=== PATIENT | female | born 1970 | race Caucasian/White ===

== ENCOUNTER 2019-10-29 00:17 | Inpatient (IN) | payer OTHER ==
--- NOTE | 2019-10-29 03:15 | PDOC ---
Attending Attestation - Resident Resident Name: HillsAnurag - ED Attending Attestation I have performed the following: I have examined & evaluated the patient, The case was reviewed & discussed with the resident, I agree w/resident's findings & plan - HPI HPI: 10/29/19 05:22 see resident hpi - Physicial Exam PE: 10/29/19 05:22 agree with resident exam - Medical Decision Making 10/29/19 05:22 49-year-old female with bright red blood per rectum x24 hours Patient seen at [facility] earlier in the day and was discharged home for outpatient follow-up, she is here now because she states the bleeding is worse and she is concerned Bright red blood per rectum is present on exam Will CT and admit for further evaluation
--- NOTE | 2019-10-29 03:38 | PDOC ---
History of Present Illness - General Chief Complaint: Pain Stated Complaint: ABD PAIN, N/V,BLEEDING Time Seen by Provider: 10/29/19 03:11 - History of Present Illness Initial Comments: 49F PMH ADHD presenting with 1 day of on/off severe lower abdominal pain w/ BRBPR. Endorses occasional nausea and vomiting. Was seen at [facility] ED, given dx of colitis and dc'd w/ zofran, cipro, flagyl. Lab work then showed WBC 14. Denies f /c, cp/sob. s/p b/l tubal ligation, lmp 10/19/19. Has persistent bleeding and pain. Family at bedside provided images of blood in toilet and clots. Denies recent travel or new foods. CAESAR Matt PCP Past History - Past Medical History Allergies/Adverse Reactions: Allergies Allergy/AdvReac Type Severity Reaction Status Date / Time No Known Allergies Allergy Verified 10/29/19 00:59 Home Medications: Ambulatory Orders Lamotrigine [Lamictal] 200 mg PO DAILY 01/17/13 Dextroamphetamine/Amphetamine [Adderall 10 mg Tablet] 20 mg PO BID 10/29/19 Cefdinir 300 mg PO BID 3 Days #6 capsule 11/02/19 Cefuroxime Axetil [Cefuroxime] 250 mg PO BID #6 tablet 11/02/19 Metronidazole [Flagyl] 500 mg PO Q8H 3 Days #9 capsule 11/02/19 metroNIDAZOLE [Flagyl -] 500 mg PO Q8H #9 tablet 11/02/19 - Psycho Social/Smoking Cessation Hx Smoking History: Never smoked Hx Alcohol Use: No Drug/Substance Use Hx: No Review of Systems - Review of Systems Comments:: CONSTITUTIONAL: Endorses occasional rigors HEENT: Denies dizziness, changes in vision / hearing RESP: Denies SOB CARD: Denies chest pain, palpitations GI: Endorses abdominal pain, BRBPR : Denies dysuria SKIN: Denies rashes NEURO: Denies numbness, tingling, weakness MSK: Denies back pain *Physical Exam - Vital Signs Last Vital Signs Temp Pulse Resp BP Pulse Ox 97.9 F 92 H 17 103/68 100 10/29/19 00:18 10/29/19 00:18 10/29/19 00:18 10/29/19 00:18 10/29/19 00:18 - Physical Exam GEN: Well appearing, NAD, comfortable. AAOx3. HEENT: NC/AT, EOMI, PERRL, anicteric. No facial asymmetry. dry mucous membranes , there is a dark substance on tongue. Normal voice. Supple neck w/ FROM. CV: S1/S2, RRR, no m/r/g LUNG: CTAB, no wheezes, crackles, rales, rhonchi. GI: +TTP LLQ. Soft, ndnt, +BS, no guarding, no rebound. No masses. Neg CVAT b/ l. RECTAL: Exam chaperoned by Dr. Castillo. No hemorrhoids, masses, lesions on inspection. no active bleeding or oozing from anus. Normal sphincter tone. No masses or nodules of the rectal vault palpated. No fecal impaction. There is blood on glove. MSK: No obvious deformities of all extremities. SKIN: Warm, dry, no rashes appreciated. PSYCH: Normal mood and affect. NEURO: Moving all extremities well. ambulates w/ normal gait ED Treatment Course - LABORATORY CBC & Chemistry Diagram: 11/02/19 07:05 11/02/19 07:05 Medical Decision Making - Medical Decision Making 10/29/19 03:20 49F PMH ADHD presenting with 1 day of on/off severe lower abdominal pain w/ BRBPR. +TTP LLQ. +blood on finger via rectal. DDx - colitis, LGIB - CBC, CMP, TSH, Lipase, Mg, Phos - UA - FOBT - Fluids - Protonix - CT A/P - admit 10/29/19 06:[address] A/P w/ IV contrast. Otherwise healthy, no labs indicated for IV contrast. 10/29/19 06:52 CT A/P IOC: Moderately to markedly thickened distal transverse colon through mid sigmoid colon, consistent with colitis. No bowel obstruction. No free air. Normal appendix. Small ascites. Unremarkable liver, spleen, stomach, pancreas, kidneys and gallbladder. 2.2 cm fibroid in uterine fundus. 1.0 cm corpus luteum right ovary. Bilateral breast implants. THIS DOCUMENT HAS BEEN ELECTRONICALLY SIGNED Deandra Pelletier M.D. 10/29/19 07:00 will sign out to AM team Discharge - Discharge Information Problems reviewed: Yes Clinical Impression/Diagnosis: Rectal bleeding, Colitis Condition: Improved - Follow up/Referral - Patient Discharge Instructions - Post Discharge Activity
[2019-10-29] MEDS ORDERED: PANTOPRAZOLE SODIUM 40 MG VIAL IVPUSH ONE (03:39)
[2019-10-29] MEDS ORDERED: SODIUM CHLORIDE 0.9% 500 ML INFUS.BAG IV ONE ×2 (03:39→05:13)
[2019-10-29] MEDS ORDERED: PANTOPRAZOLE SODIUM 40 MG/100 ML BAG IVPB ONE (03:56)
[2019-10-29 04:18] LABS: BASO % 0.2 % (0-2.0); EOS % 0.4 % (0-4.5); HEMATOCRIT 34.5 % (32.4-45.2); HEMOGLOBIN 11.5 GM/dL (10.7-15.3); LYMPH % 8.5 % (8-40); MCH 30.6 pg (25.7-33.7); MCHC 33.4 g/dl (32.0-36.0); MEAN CELL VOLUME 91.7 fl (80-96); MEAN PLT VOLUME 7.4 fl (7.5-11.1); MONO % 6.9 % (3.8-10.2); PLATELET COUNT 357 K/MM3 (134-434); RBC 3.77 M/mm3 (3.60-5.2); WHITE BLOOD COUNT 16.2 K/mm3 (4.0-10.0)
[2019-10-29 04:36] LABS: INR 1.06 (0.83-1.09); PROTHROMBIN TIME (PATIENT) 12.5 SEC (9.7-13.0)
[2019-10-29 04:39] LABS: ACTIVATED PTT 32.9 SECONDS (25.2-36.5)
[2019-10-29 06:07] LABS: BILIRUBIN,TOTAL 0.6 mg/dL (0.2-1); BLOOD UREA NITROGEN 10.4 mg/dL (7-18); CREATININE 0.5 mg/dL (0.55-1.3); PHOSPHOROUS 3.4 mg/dL (2.5-4.9); TOT PROT 5.7 g/dl (6.4-8.2)
[2019-10-29] MEDS ORDERED: SODIUM CHLORIDE 1,000 ML IV STA (06:59)
[2019-10-29] MEDS ORDERED: CIPROFLOXACIN 400 MG/D5W 400 MG/200 ML IVPB IVPB ONE (07:00)
[2019-10-29] MEDS ORDERED: ACETAMINOPHEN INJECTION 100 ML IVPB ONE (07:10)
[2019-10-29] MEDS ORDERED: CEFTRIAXONE 1 GM in DEXTROSE 5%-WATER - 100 ML IVPB ONE (07:14)
[2019-10-29] MEDS: ACETAMINOPHEN 1000 MG/100 ML VIAL (NON FORMULARY) IVPB ONE (07:17)
--- NOTE | 2019-10-29 07:48 | PN ---
Teaching Attending Note Name of Resident: Anurag Rutherford ATTENDING PHYSICIAN STATEMENT I saw and evaluated the patient. I reviewed the resident's note and discussed the case with the resident. I agree with the resident's findings and plan as documented. Seen and examined; please see resident note for further historical information. I personally verified all ward historical information and exam findings. Personally interpreted all imaging and diagnostics and reviewed appropriate consults. I reviewed all labs and vital signs as per resident note and EMR as documented. I agree with the above assessment and plan unless supplemented by myself in the following. Patient has been having 1 day of bloody diarrhea for what she describes as occurring over 20 episodes. Nothing makes it better or worse, has gotten prescription for outpatient antibiotics but has not taken any. She has no known antibiotic allergies, denies a family history of inflammatory bowel disease. Does not take home medications. She is hemodynamically stable and afebrile. Agree with past medical, past surgical, family, and social history as discussed. 10 item review of systems completed and is negative aside from as discussed in the subjective data in my own/the resident documentation. VS, labs, imaging reviewed NAD, AAO, resting comfortably in bed. RRR s1/2 no mgr Normal muscle tone, moves all 5 extremities with normal apparent strength Neck is supple, trachea midline, no henok LN Lungs CTAB with sym expansion Mild tenderness with hyperactive bowel sounds CN2-12 wnl; no FND NC AT EOMI PERRLA Normal mood, appropriate behavior, euthymic affect No skin breakdown or rashes noted Urinalysis is pending, will follow up CBC shows neutrophilia with leukocytosis to 16.2, coags are normal, chemistry reveals hyperchloremia with low TSH, free T4 is pending. FOBT is positive. EKG was not performed in the emergency room, will obtain to delineate necessity for quinolone use CT of the abdomen/pelvis performed overnight shows mild periportal edema of uncertain etiology with normal-appearing gallbladder without gallstones or wall thickening with thickening of the colonic wall mainly the distal transverse colon descending and sigmoid colon consistent with colitis that is likely inflammatory or infectious in nature with no extraluminal air or free fluid collection or abscess identified. There is a small amount of fluid in the lower pelvis/cul-de-sac region with both ovaries identified with multiple small cysts and follicles with pelvic ultrasound recommended. ASSESSMENT AND PLAN: Patient presents with bloody diarrhea. This is likely secondary to inflammatory /infectious colitis, she is hemodynamically stable and afebrile. Will start on antibiotics and consider GI consultation monitoring on the floor on the medicine service. Problems include: Colitis, infectious versus inflammatory, likely the inciting factor of the bloody diarrhea. Will consult gastroenterology, place her on clears, monitor on the floor, and place her on empiric antibiotics. Pending EKG to delineate if we can use fluoroquinolones. Ovarian follicles, obtaining transvaginal ultrasound to better assess. Low TSH, free T4 pending Hypoalbuminemia, pending prealbumin Leukocytosis with neutrophilia, likely secondary to the underlying colitis. Trend CBC. CODE STATUS, full code
--- NOTE | 2019-10-29 07:56 | HP ---
CHIEF COMPLAINT: Abdominal pain with bright red blood per rectum PCP: Geovanny Galeano HISTORY OF PRESENT ILLNESS: Pt. is a 49 y.o. F w/ PMHx. of ADHD present with 1 day of severe lower abdominal pain and bright red blood per rectum. Pt. states that she was in her usual state of health when she woke up Saturday morning 3AM with this abdominal pain. Pt. 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 Pt was discharged on PO antibiotics (Ciprofloxacin and Flagyl) but Pt. did not got to pick them up and instead came to the [facility] ER. Pt. states that associated with the abdominal pain is bloody diarrhea with clots(20x) and vomiting (7x). Pt. endorses light headedness, and dizziness when she sits up. Pt. states that the diarrhea comes about especially when she eats or tries to sit or stand up. Per history of what Pt. describes that she eats Pt. has a low fiber diet. Pt. denies any sick contacts or eating anything that was unsual for her. Pt. states LMP was 10/19/19 to 10/23/19. Pt. denies any shortness of breath , current chest pain, fever, chills or any history of this happening before. 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 Shoulder rotator Cuff tear PAST SURGICAL HISTORY: Breast Augmentation, Tubal ligation, x 2, Tummy Tuck, C3-C5 fusion and graft Social History: Smokin Pack/ week Alcohol: Denies (Quit 11 years ago-does not want to elaborate further) Drugs: Marijuana (states Pt has Medical card for PTSD) Allergies No Known Allergies Allergy (Verified 10/29/19 00:59) HOME MEDICATIONS: Home Medications Medication Instructions Recorded Dextroamphetamine/Amphetamine 20 mg PO DAILY PRN 10/29/19 [Adderall 10 mg Tablet] REVIEW OF SYSTEMS As above PHYSICAL EXAMINATION Vital Signs - 24 hr 10/29/19 10/29/19 10/29/19 00:18 05:04 05:56 Temperature 97.9 F Pulse Rate 92 H Pulse Rate [ 80 Right Radial] Respiratory 17 18 Rate Blood Pressure 103/68 Blood Pressure 86/51 L 97/56 L [Left Arm] O2 Sat by Pulse 100 100 Oximetry (%) GENERAL: Awake, alert, and fully oriented, in no acute distress. HEAD: Normal with no signs of trauma. EYES: Extraocular movements intact, sclera anicteric, conjunctiva clear. EARS, NOSE, THROAT: Ears normal, nares patent, blackened tongue. Dry mucous membranes. LUNGS: Breath sounds equal, clear to auscultation bilaterally. No wheezes, and no crackles. No accessory muscle use. Breast implants HEART: Regular rate and rhythm, normal S1 and S2 without murmur ABDOMEN: Soft, diffuse tenderness to palpation most prominent in the LLQ, along the left side of the abdomen and along the inferior portion of the abdomen, not distended, hyperactive bowel sounds, no guarding. Pt. had no internal or external hemorrhoids, good rectal tone and no henok blood on glove. Pt. denies any tenderness. Rectal vault was empty. MUSCULOSKELETAL: Lower back pain. No CVA tenderness. UPPER EXTREMITIES: warm, well-perfused. No cyanosis. No clubbing. No peripheral edema. LOWER EXTREMITIES: 2+ dorsal pedal pulses, warm, well-perfused. No calf tenderness. No peripheral edema. NEUROLOGICAL: No focal deficits. Normal speech. PSYCHIATRIC: Cooperative. Good eye contact. Appropriate mood and affect. SKIN: Warm, dry, normal turgor Laboratory Results - last 24 hr 10/29/19 10/29/19 10/29/19 03:45 03:45 03:45 WBC 16.2 H RBC 3.77 Hgb 11.5 Hct 34.5 MCV 91.7 MCH 30.6 MCHC 33.4 RDW 14.0 Plt Count 357 MPV 7.4 L Absolute Neuts (auto) 13.6 H Neutrophils % 84.0 H Lymphocytes % 8.5 Monocytes % 6.9 Eosinophils % 0.4 Basophils % 0.2 Nucleated RBC % 0 PT with INR INR PTT (Actin FS) Sodium 139 Potassium 4.0 Chloride 109 H Carbon Dioxide 23 Anion Gap 7 L BUN 10.4 Creatinine 0.5 L Est GFR (CKD-EPI)AfAm 132.65 Est GFR (CKD-EPI)NonAf 114.45 Random Glucose 109 H Calcium 8.0 L Phosphorus 3.4 Magnesium 2.0 Total Bilirubin 0.6 AST 19 ALT 15 Alkaline Phosphatase 36 L Total Protein 5.7 L Albumin 3.0 L Lipase 126 TSH 0.26 L Serum , Qual Blood Type A POSITIVE Antibody Screen Negative 10/29/19 10/29/19 03:45 03:45 WBC RBC Hgb Hct MCV MCH MCHC RDW Plt Count MPV Absolute Neuts (auto) Neutrophils % Lymphocytes % Monocytes % Eosinophils % Basophils % Nucleated RBC % PT with INR 12.50 INR 1.06 PTT (Actin FS) 32.9 Sodium Potassium Chloride Carbon Dioxide Anion Gap BUN Creatinine Est GFR (CKD-EPI)AfAm Est GFR (CKD-EPI)NonAf Random Glucose Calcium Phosphorus Magnesium Total Bilirubin AST ALT Alkaline Phosphatase Total Protein Albumin Lipase TSH Serum , Qual Negative Blood Type Antibody Screen ASSESSMENT/PLAN: Pt. is a 49 y.o. F w/ PMHx. of ADHD present with 1 day of severe lower abdominal pain and bright red blood per rectum. #Uncomplicated Colitis w/ bloody Diarrhea bHCG Negative CT A/P shows moderate to marked thicknened distal transverse through mid- sigmoid colon consistent with colitis. Small ascites, 2.2cm fibroid uterus, 1.0 cm corpus luteum, no bowel obstruction, no free air, normal appendix. Will start on Levaquin and Flagyl for 5-7 days Leukocytosis to 16.2 FOBT + Keep NPO HgB stable at 11.5, will trend CBC f/u ESR and CRP to evaluate for IBD, this is Pt.'s first episode therefore will likely need to follow up outpatient with a industrial automation specialist if re-occurs GI Consult to Dr. Ovalles appreciated DDx. includes Infectious etiology (Shigella, ETEC, Giardia and Salmonella) for which stool cultures is recommended; diverticular disease: though not seen reported on CT scan, clinically Pt. has Hx. of obesity and reports a poor diet with decreased fiber intake; Inflammatory disease is also a possibility, though this is the Pt.s first episode of abdominal pain and bloody diarrhea, Pt. does take Adderall and is a smoker, therefore nonocclusive colonic ischemia is a possiblity and likely probable based on the distribution of the inflammation in the splenic flexture watershed area, and bloody diarrhea that does not require transfusion. Pt. would benefit from Colonoscopy in the future with biopsy after resolution of symptoms. #Low TSH f/u T4 and fT3 #ADHD would hold Adderall at this time call placed to Dr. West, left message. #FEN NS @ 100 monitor electrolytes and replete as needed NPO #DVT Ppx. SCDs, given acute bleeding Visit type - Emergency Visit Emergency Visit: Yes ED Registration Date: 10/29/19 Care time: The patient presented to the Emergency Department on the above date and was hospitalized for further evaluation of their emergent condition. - New Patient This patient is new to me today: Yes Date on this admission: 10/29/19 - Critical Care Critical Care patient: No ATTENDING PHYSICIAN STATEMENT I saw and evaluated the patient. I reviewed the resident's note and discussed the case with the resident. I agree with the resident's findings and plan as documented. SUBJECTIVE: OBJECTIVE: ASSESSMENT AND PLAN:
[2019-10-29] MEDS ORDERED: SODIUM CHLORIDE 1,000 ML IV SCH (08:15)
[2019-10-29 09:24] LABS: PH,URINE 5.5 (5.0-8.0); URINE APPEARANCE CLEAR; URINE BILIRUBIN NEGATIVE (NEGATIVE); URINE COLOR YELLOW; URINE GLUCOSE (UA) NEGATIVE (NEGATIVE); URINE KETONE 1+ (NEGATIVE); URINE LEUK ESTERASE NEGATIVE (NEGATIVE); URINE NITRITE NEGATIVE (NEGATIVE); URINE PROTEIN NEGATIVE (NEGATIVE); URINE UROBILINOGEN 0.2 mg/dL (0.2-1.0)
[2019-10-29 10:14] LABS: BASO % 0.2 % (0-2.0); EOS % 0.6 % (0-4.5); HEMATOCRIT 31.4 % (32.4-45.2); HEMOGLOBIN 10.5 GM/dL (10.7-15.3); LYMPH % 12.5 % (8-40); MCH 30.7 pg (25.7-33.7); MCHC 33.4 g/dl (32.0-36.0); MEAN CELL VOLUME 91.8 fl (80-96); MEAN PLT VOLUME 7.1 fl (7.5-11.1); MONO % 6.7 % (3.8-10.2); PLATELET COUNT 322 K/MM3 (134-434); RBC 3.42 M/mm3 (3.60-5.2); RDW 14.3 % (11.6-15.6)
[2019-10-29 14:55] VITALS: BMI 20.2
--- NOTE | 2019-10-29 14:55 | CON.GI ---
Consult Consult Specialty:: GI Referred by:: Hospitalist Service Reason for Consultation:: Abdominal pain and rectal bleeding - History of Present Illness Chief Complaint: Abdominal pain and rectal bleeding History of Present Illness: 49F admitted for evaluation of abdominal pain, rectal bleeding. States that she was in her USOH up until early saturday morning. At around 3 in the morning saturday, she was awoken by severe left sided abdominal pain, nausea, vomiting. She also passed a bloody bowel movement at at time. Symptoms persisted, was seen at the [facility] ER, where she was given cipro and discharged. Bleeding and abdominal pain persisted so she decided to come to [facility]. In the ER , triage vitals revealed T:97.9 P: 92 BP: 103/68. She denied fevers/chills. She denied overt diarrhea. She denies recent travel or antibiotic use. The only new medication was Tamiflu, given late 09/24. She denies sick human contacts. She ate reheated penne crow vodka the night prior to her symptoms. He dog had diarrhea saturday-saturday and she was cleaning it. She has never had an upper endoscopy or colonoscopy. There is no personal or family history of IBD, colorectal cancer or other GI malignancy. Pain persists as dfoes rectal bleeding. She has a leukocytosis and CT scan revealed a left sided colitis. 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 Father: alive: healthy. 2 brothers, 2 sisters: healthy. 1 son, 1 daughter: healthy. No family history of colorectal cancer, IBD or other GI malignancy. Review of Systems - Review of Systems Constitutional: denies: Chills, Fever Cardiovascular: denies: Chest Pain Respiratory: denies: Cough Gastrointestinal: reports: Abdominal Pain, Nausea, Rectal Bleeding, Vomiting. denies: Constipation, Diarrhea, Vomiting Blood Physical Exam-GI Vital Signs: Vital Signs Temperature Pulse Rate 80 10/29/19 12:50 Respiratory Rate 20 10/29/19 12:50 Blood Pressure 90/54 L 10/29/19 12:50 O2 Sat by Pulse Oximetry (%) 98 10/29/19 12:50 Constitutional: Yes: Calm Eyes: No: Sclera Icterus Cardiovascular: Yes: Regular Rate and Rhythm Respiratory: Yes: CTA Bilaterally Gastrointestinal Inspection: Yes: Scars (lower abdominopelvic abdominoplast scar ), Other (decorative umbilical ring) ...Auscultate: Yes: Normoactive Bowel Sounds ...Palpate: Yes: Soft, Tenderness (TTP left abdomen) ...Percussion: No: Tympanitic ...Rectal Exam: Yes: Other (No external lesions, no masses, scant amount of blood mixed with scant amounbt of stool) Edema: No (No LE edema) Labs: CBC, BMP 10/29/19 09:30 10/29/19 03:45 INR, PTT INR 1.06 (0.83-1.09) 10/29/19 03:45 Imaging - Results Cat Scan: Report Reviewed, Image Reviewed Problem List - Problems (1) Segmental colitis Assessment/Plan: Left sided colitis accompanied more with pain and rectal bleeding that with diarrhea: Given distribution of colitis and acute presentation, differential would need to include vascular process such as ischemic colitis. While she is young for this process, she does smoke cigarettes and uses adderal for her ADHD, both of which can be precipitating factors She has not beem having henok colitis, however, infectious etiology will need to be excluded if this does persist. Her dog was sick with a diarrhea infection. Infections like campylobacter can be transmitted from, animal source , however, incubation period usually 72 hours, usually does not cause a segmental colitis and there are no associated fevers, chills or henok diarrhea. Advise: IV Abx. Can continue Levaquin / flagyl for now Stool for culture / C. DIff if overt diarrhea Advanced to clear liquids Discussed plan for possible Flex sig in AM to further evaluate and confirm ischemic changes. Code(s): K50.10 - CROHN'S DISEASE OF LARGE INTESTINE WITHOUT COMPLICATIONS
--- NOTE | 2019-10-29 15:10 | EKG ---
Test Reason : Blood Pressure : / mmHG Vent. Rate : 074 BPM Atrial Rate : 074 BPM P-R Int : 082 ms QRS Dur : 120 ms QT Int : 422 ms P-R-T Axes : 059 -49 011 degrees QTc Int : 468 ms SINUS RHYTHM WITH SHORT WI LEFT AXIS DEVIATION LOW VOLTAGE QRS RIGHT BUNDLE BRANCH BLOCK ABNORMAL ECG NO PREVIOUS ECGS AVAILABLE Confirmed by SUNIL LINO MD ([id number]) on 10/29/2019 3:10:10 PM Referred By: ADWOA CRENSHAW DR Confirmed By:SUNIL LINO MD
[2019-10-29] MEDS: SODIUM CHLORIDE 1,000 ML IV SCH ×2 (15:26→18:50)
[2019-10-29 18:06] LABS: BASO % 0.1 % (0-2.0); EOS % 0.5 % (0-4.5); HEMATOCRIT 29.9 % (32.4-45.2); HEMOGLOBIN 9.9 GM/dL (10.7-15.3); LYMPH % 8.7 % (8-40); MCH 30.5 pg (25.7-33.7); MCHC 33.2 g/dl (32.0-36.0); MEAN CELL VOLUME 91.8 fl (80-96); MEAN PLT VOLUME 7.3 fl (7.5-11.1); MONO % 4.8 % (3.8-10.2); NEUT % 85.9 % (42.8-82.8); PLATELET COUNT 307 K/MM3 (134-434); RBC 3.26 M/mm3 (3.60-5.2); RDW 14.3 % (11.6-15.6); WHITE BLOOD COUNT 16.3 K/mm3 (4.0-10.0)
[2019-10-29] MEDS: ACETAMINOPHEN 1000 MG/100 ML VIAL (NON FORMULARY) IVPB PRN (21:16)
[2019-10-30] MEDS: ACETAMINOPHEN 1000 MG/100 ML VIAL (NON FORMULARY) IVPB PRN ×2 (04:06→12:29)
[2019-10-30 08:45] LABS: BASO % 0.2 % (0-2.0); EOS % 0.8 % (0-4.5); HEMATOCRIT 29.4 % (32.4-45.2); HEMOGLOBIN 9.8 GM/dL (10.7-15.3); MCH 30.7 pg (25.7-33.7); MCHC 33.5 g/dl (32.0-36.0); MEAN CELL VOLUME 91.6 fl (80-96); MEAN PLT VOLUME 7.4 fl (7.5-11.1); MONO % 5.3 % (3.8-10.2); NEUT % 81.7 % (42.8-82.8); PLATELET COUNT 295 K/MM3 (134-434); RBC 3.21 M/mm3 (3.60-5.2); RDW 14.3 % (11.6-15.6); WHITE BLOOD COUNT 14.5 K/mm3 (4.0-10.0)
[2019-10-30 08:54] LABS: INR 1.11 (0.83-1.09); PROTHROMBIN TIME (PATIENT) 13.1 SEC (9.7-13.0)
[2019-10-30 08:57] LABS: ACTIVATED PTT 33.3 SECONDS (25.2-36.5)
[2019-10-30 09:03] LABS: CALCIUM 7.5 mg/dL (8.5-10.1); CREATININE 0.4 mg/dL (0.55-1.3); MAGNESIUM 2.1 mg/dL (1.8-2.4); POTASSIUM 3.1 mmol/L (3.5-5.1)
[2019-10-30] MEDS ORDERED: PT OWN MED DRAWER 7, Y5N ONE ×3 (09:47→12:28)
[2019-10-30 09:54] LABS: BLOOD UREA NITROGEN 2.1 mg/dL (7-18)
[2019-10-30] MEDS ORDERED: PROCHLORPERAZINE MALEATE 5 MG TABLET PO ONE (10:00)
--- NOTE | 2019-10-30 11:37 | PN ---
Progress Note (short form) - Note Progress Note: Flex sig complete. Report placed in procedural section of physical chart and will be scanned into [employer] Problem List - Problems (1) Segmental colitis Code(s): K50.10 - CROHN'S DISEASE OF LARGE INTESTINE WITHOUT COMPLICATIONS
[2019-10-30] MEDS: VANCOMYCIN 250 MG/5 ML ORAL SOLUTION PO SCH ×2 (13:19→17:29)
--- NOTE | 2019-10-30 14:46 | PN ---
Physical Exam: SUBJECTIVE: Patient seen and examined at bedside. Overnight there were no acute events. She offers no complaints today. She no longer is experiencing clots/ bloody diarrhea. OBJECTIVE: Vital Signs Temp Pulse Resp BP Pulse Ox 98.3 F 63 20 90/55 L 99 10/31/19 06:00 10/31/19 06:00 10/31/19 06:00 10/31/19 06:00 10/30/19 21:00 GENERAL: AOx3, in no acute distress HEAD: NCAT EYES: MARY, EOMI, conjunctiva clear. ENT: Ears normal, nares patent, oropharynx clear without exudates. Moist mucous membranes. NECK: Normal range of motion, supple without lymphadenopathy, JVD, or masses. LUNGS: CTAB. No wheezes, and no crackles. No accessory muscle use. HEART: RRR s1 s2 ABDOMEN: Soft, BS present in all 4 quadrants, non-distended, no JVD, umbilical ornament. TYRONE: no gross hemorrhoids, adequate sphincter tone, no blood on glove MUSCULOSKELETAL: No bony deformities or tenderness. No CVA tenderness. UPPER EXTREMITIES: 2+ pulses, warm, well-perfused. No cyanosis. No clubbing. No peripheral edema. LOWER EXTREMITIES: 2+ pulses, warm, well-perfused. No calf tenderness. No peripheral edema. NEUROLOGICAL: No focal deficits. Cranial nerves II-XII intact. Normal speech. Gait not appreciated. PSYCHIATRIC: Cooperative. Good eye contact. Appropriate mood and affect. SKIN: Warm, dry, normal turgor, no rashes or lesions noted, normal capillary refill. Laboratory Results - last 24 hr 10/29/19 10/30/19 10/30/19 17:15 07:50 07:50 WBC 16.3 H RBC 3.26 L Hgb 9.9 L Hct 29.9 L MCV 91.8 MCH 30.5 MCHC 33.2 RDW 14.3 Plt Count 307 MPV 7.3 L Absolute Neuts (auto) 14.0 H Neutrophils % 85.9 H Lymphocytes % 8.7 D Monocytes % 4.8 Eosinophils % 0.5 Basophils % 0.1 Nucleated RBC % 0 ESR PT with INR 13.10 H INR 1.11 H PTT (Actin FS) 33.3 Sodium 141 Potassium 3.1 L Chloride 112 H Carbon Dioxide 22 Anion Gap 7 L BUN 2.1 L* Creatinine 0.4 L Est GFR (CKD-EPI)AfAm 142.75 Est GFR (CKD-EPI)NonAf 123.17 Random Glucose 68 L Calcium 7.5 L Phosphorus 2.0 L Magnesium 2.1 10/30/19 10/30/19 07:50 07:50 WBC 14.5 H RBC 3.21 L Hgb 9.8 L Hct 29.4 L MCV 91.6 MCH 30.7 MCHC 33.5 RDW 14.3 Plt Count 295 MPV 7.4 L Absolute Neuts (auto) 11.9 H Neutrophils % 81.7 Lymphocytes % 12.0 D Monocytes % 5.3 Eosinophils % 0.8 Basophils % 0.2 Nucleated RBC % 0 ESR 5 PT with INR INR PTT (Actin FS) Sodium Potassium Chloride Carbon Dioxide Anion Gap BUN Creatinine Est GFR (CKD-EPI)AfAm Est GFR (CKD-EPI)NonAf Random Glucose Calcium Phosphorus Magnesium Active Medications Sodium Chloride (Normal Saline -) 1,000 mls @ 150 mls/hr IV ASDIR [facility] Stop: 11/01/19 14:54 Last Admin: 10/30/19 18:03 Dose: Not Given Metronidazole (Flagyl 500mg Premixed Ivpb -) 500 mg in 100 mls @ 100 mls/hr IVPB Q8H-IV [facility] Last Admin: 10/31/19 01:13 Dose: 100 mls/hr Ceftriaxone Sodium 1 gm/ (Dextrose) 50 mls @ 100 mls/hr IVPB DAILY [facility] Last Admin: 10/30/19 16:13 Dose: 100 mls/hr Vancomycin HCl (Vancomycin Oral Solution) 125 mg PO Q6HPO [facility] Last Admin: 10/31/19 06:45 Dose: 125 mg ASSESSMENT/PLAN: 49 y/o female PMH ADHD c/o bloody diarrhea for 1 day; sudden onset, concurrent with bloody emesis x1. Flex sigmoidoscopy demonstrated transverse/descending/ sigmoid colitis. # Colitis; infectious vs ischemic - Pseudomembranes seen on sigmoidoscopy - Active smoker - Vancomycin 125 mg po q6h - Metronidazole 500 iv q8h - Ceftriaxone 1 gm iv qd - Stool cx and c diff pending # H/o Scarlet fever in youth - R BBB, L axis, and prolonged QTC: f/u with her card as out pt - Echo and cardiac monitoring to r/o Afib if present condition inconsistent with infectious etiology # Normocytic anemia - Hb 9.8 - Transfuse under hb 7 # ADHD - Home supply/NF Adderall # Incidental finding on imaging - Ovarian cyst and fibroid uterus: f/u as out pt # F/E/N - PO - Cont. to monitor - Liquid diet # DVT prophylaxis - Regular ambulation; scd # Disposition - Med/surg Martin Solitario MD Visit type - Emergency Visit Emergency Visit: No - New Patient This patient is new to me today: Yes Date on this admission: 10/31/19 - Critical Care Critical Care patient: No ATTENDING PHYSICIAN STATEMENT I saw and evaluated the patient. I reviewed the resident's note and discussed the case with the resident. I agree with the resident's findings and plan as documented. SUBJECTIVE: OBJECTIVE: ASSESSMENT AND PLAN:
[2019-10-30] MEDS ORDERED: POTASSIUM CHLORIDE TABS 20 MEQ TABLET.ER (FP) PO ONE (15:38)
--- NOTE | 2019-10-30 15:45 | PN ---
Teaching Attending Note Name of Resident: Martin Solitario ATTENDING PHYSICIAN STATEMENT I saw and evaluated the patient. I reviewed the resident's note and discussed the case with the resident. I agree with the resident's findings and plan as documented. SUBJECTIVE: No fever or chills. No PATRICK. has abd pain but better , has no N/V. No SOB. she is hungry, tolerated clears and wants real food. OBJECTIVE: NAD, awake, alert, cooperative . MMM Cv: RRR. no MRG Lungs: CATB Abd: soft, ND, TTP in LLQ and suprapubic area. Ext : no edema or erythema ASSESSMENT AND PLAN: 49 y/o lady with h/o ADHD, and atrioventricular tachycardia s/p ablation, who presented with bloody diarrhea and abd pain. she was found to have segmental colitis 1- transverse/descending/sigmoid colitis . likely infectious. Possible ischemic . pseudomembranes seen on sigmoidoscopy. - cont po vanco, IV flagyl and levaquin - advance diet to full liquids. avoid solid diet at this time to rest the colon - follow stool cx and c diff toxin - cont IVF - if infectious w/u neg and ischemia is suspected then , she needs echo and cardiac monitoring to r.o A fib 2- Hypokalemia replete 3- Acute blood loss anemia: stable hb now. no need for transfusion 4- h/o ADHD . resume adderall and lamictal 5- DVT OX : scds
[2019-10-30] MEDS ORDERED: cefTRIAXone SODIUM 1 GM VIAL ONE (16:11)
[2019-10-30] MEDS ORDERED: DEXTROSE 5%-WATER - 50 ML IVPB ONE (16:12)
[2019-10-30] MEDS: CEFTRIAXONE 1 GM in DEXTROSE 5%-WATER - 50 ML IVPB SCH (16:13)
[2019-10-30] MEDS: SODIUM CHLORIDE 1,000 ML IV SCH ×2 (18:02→18:03)
[2019-10-30] MEDS ORDERED: ACETAMINOPHEN 1000 MG/100 ML VIAL (NON FORMULARY) IVPB ONE (22:04)
[2019-10-30] MEDS: ACETAMINOPHEN 1000 MG/100 ML VIAL (NON FORMULARY) IVPB ONE (22:18)
[2019-10-31] MEDS: VANCOMYCIN 250 MG/5 ML ORAL SOLUTION PO SCH ×5 (01:12→23:18)
[2019-10-31] MEDS: SODIUM CHLORIDE 1,000 ML IV SCH (04:00)
[2019-10-31 07:25] LABS: HEMATOCRIT 28.6 % (32.4-45.2); HEMOGLOBIN 9.8 GM/dL (10.7-15.3); MCH 31.2 pg (25.7-33.7); MCHC 34.2 g/dl (32.0-36.0); MEAN CELL VOLUME 91.3 fl (80-96); MEAN PLT VOLUME 7.5 fl (7.5-11.1); PLATELET COUNT 284 K/MM3 (134-434); RBC 3.13 M/mm3 (3.60-5.2); RDW 14.6 % (11.6-15.6); WHITE BLOOD COUNT 9.3 K/mm3 (4.0-10.0)
[2019-10-31 08:51] LABS: ALBUMIN 2.6 g/dl (3.4-5.0); BILIRUBIN,TOTAL 0.6 mg/dL (0.2-1); CALCIUM 7.9 mg/dL (8.5-10.1); CREATININE 0.6 mg/dL (0.55-1.3); POTASSIUM 3.6 mmol/L (3.5-5.1); TOT PROT 4.9 g/dl (6.4-8.2)
[2019-10-31 09:03] LABS: BLOOD UREA NITROGEN 1.4 mg/dL (7-18)
[2019-10-31] MEDS ORDERED: DEXTROSE 5%-WATER - 50 ML IVPB ONE (10:09)
[2019-10-31] MEDS ORDERED: cefTRIAXone SODIUM 1 GM VIAL ONE (10:09)
[2019-10-31] MEDS: CEFTRIAXONE 1 GM in DEXTROSE 5%-WATER - 50 ML IVPB SCH (10:17)
[2019-10-31] MEDS ORDERED: ACETAMINOPHEN 1000 MG/100 ML VIAL (NON FORMULARY) IVPB ONE (11:12)
--- NOTE | 2019-10-31 11:54 | PN ---
Teaching Attending Note Name of Resident: Martin Solitario ATTENDING PHYSICIAN STATEMENT I saw and evaluated the patient. I reviewed the resident's note and discussed the case with the resident. I agree with the resident's findings and plan as documented. SUBJECTIVE: No fever or chills . Hungry. has abd pain in LLQ and L upper Quadrant, and slightly on R side. had 8 BMs yesterday, the first one was bloody. 2 BMs this am , with no blood . OBJECTIVE: NAD, awake, alert, cooperative. MMM. Cv: RRR. no MRG Lungs: CATB. Abd: soft, ND, TTP in LLQ and suprapubic area, and LLQ. bladder is percussed half way below the umbilicus Ext: no edema or erythema ASSESSMENT AND PLAN: 49 y/o lady with h/o ADHD, and atrioventricular tachycardia s/p ablation, who presented with bloody diarrhea and abd pain. she was found to have segmental colitis 1- Transverse/descending/sigmoid colitis. likely infectious. Possible ischemic . pseudomembranes seen on sigmoidoscopy. - cont po vanco, IV flagyl and Ceftriaxone - cont full liquids, given the current pain and sx - cont IVF. extra bolus today - follow stool cx and c diff toxin - if infectious w/u neg and ischemia is suspected then, she needs echo and cardiac monitoring to r.o A fib - bladder scan with 112 cc of PVR. will repeat later today 2- Hypokalemia: resolved, will monitor. 3- Acute blood loss anemia: stable hb. Bleeding has stopped 4- H/o ADHD . She takes her adderall at a lower dose and as needed at home. She also stated she does not take lamictal any more - will ask her to bring it form home 5- Fibroid uterus and Ovarian cyst on CT scan : she was informed by Dr. Chance and will follow with her MANAGER MAC. 6- Long QTC: avoid any prolonging agents 7- DVT OX : scds if bleeding does not recur , then soon can start SQ heparin
[2019-10-31] MEDS ORDERED: SODIUM CHLORIDE 500 ML IV STA (12:10)
--- NOTE | 2019-10-31 14:00 | PN ---
Physical Exam: SUBJECTIVE: Patient seen and examined at bedside. Overnight there were no acute events. This AM she endorses that she is still having x10 diarrheal BM but that are now non-bloody. OBJECTIVE: Vital Signs Temp Pulse Resp BP Pulse Ox 97.5 F L 75 20 93/51 L 98 10/31/19 16:30 10/31/19 23:00 10/31/19 23:00 10/31/19 23:00 10/31/19 21:00 GENERAL: AOx3, in no acute distress HEAD: NCAT EYES: MARY, EOMI, conjunctiva clear. ENT: Ears normal, nares patent, oropharynx clear without exudates. Dry mucous membranes. NECK: Normal range of motion, supple without lymphadenopathy, JVD, or masses. LUNGS: CTAB. No wheezes, and no crackles. No accessory muscle use. HEART: RRR s1 s2 ABDOMEN: Soft, BS present in all 4 quadrants, non-distended, no JVD, umbilical ornament. TYRONE from day 1: no gross hemorrhoids, adequate sphincter tone, no blood on glove MUSCULOSKELETAL: No bony deformities or tenderness. No CVA tenderness. UPPER EXTREMITIES: 2+ pulses, warm, well-perfused. No cyanosis. No clubbing. No peripheral edema. LOWER EXTREMITIES: 2+ pulses, warm, well-perfused. No calf tenderness. No peripheral edema. NEUROLOGICAL: No focal deficits. Cranial nerves II-XII intact. Normal speech. Gait not appreciated. PSYCHIATRIC: Cooperative. Good eye contact. Appropriate mood and affect. SKIN: Warm, dry, normal turgor, no rashes or lesions noted, normal capillary refill. Laboratory Results - last 24 hr 10/30/19 10/31/19 10/31/19 07:50 06:40 06:40 WBC 9.3 RBC 3.13 L Hgb 9.8 L Hct 28.6 L MCV 91.3 MCH 31.2 MCHC 34.2 RDW 14.6 Plt Count 284 MPV 7.5 Sodium 142 Potassium 3.6 Chloride 112 H Carbon Dioxide 24 Anion Gap 6 L BUN 1.4 L* Creatinine 0.6 Est GFR (CKD-EPI)AfAm 124.92 Est GFR (CKD-EPI)NonAf 107.78 Random Glucose 123 H Calcium 7.9 L Total Bilirubin 0.6 AST 14 L ALT 12 L Alkaline Phosphatase 33 L Total Protein 4.9 L Albumin 2.6 L Free T3 2.2 Active Medications Acetaminophen (Ofirmev Injection -) 1,000 mg IVPB Q6H PRN PRN Reason: PAIN LEVEL 7 - 10 Stop: 11/01/19 20:59 Last Admin: 10/31/19 23:19 Dose: 1,000 mg Sodium Chloride (Normal Saline -) 1,000 mls @ 150 mls/hr IV ASDIR [facility] Stop: 11/01/19 14:54 Last Admin: 10/31/19 04:00 Dose: 150 mls/hr Metronidazole (Flagyl 500mg Premixed Ivpb -) 500 mg in 100 mls @ 100 mls/hr IVPB Q8H-IV [facility] Last Admin: 11/01/19 02:05 Dose: 100 mls/hr Ceftriaxone Sodium 1 gm/ (Dextrose) 50 mls @ 100 mls/hr IVPB DAILY [facility] Last Admin: 10/31/19 10:17 Dose: 100 mls/hr Non-Formulary Medication (Dextroamphetamine/Amphetamine [Adderall 10 Mg Tablet] ) 20 mg PO BID [facility] Vancomycin HCl (Vancomycin Oral Solution) 125 mg PO Q6HPO [facility] Last Admin: 10/31/19 23:18 Dose: 125 mg ASSESSMENT/PLAN: 49 y/o female PMH ADHD c/o bloody diarrhea for 1 day; sudden onset, concurrent with bloody emesis x1. Flex sigmoidoscopy demonstrated transverse/descending/ sigmoid colitis. # Colitis; infectious vs ischemic - Pseudomembranes seen on sigmoidoscopy - Active smoker - C Diff NEG: dc contact isolation - Cont. vanc - Metronidazole 500 iv q8h - Ceftriaxone 1 gm iv qd - Stool cx pending - 500 cc bolus today # H/o Scarlet fever in youth - R BBB, L axis, and prolonged QTC: f/u with her card as out pt - Echo and cardiac monitoring to r/o Afib if present condition inconsistent with infectious etiology # Normocytic anemia - Hb 9.8 - Transfuse under hb 7 # ADHD - Home supply/NF Adderall # Incidental finding on imaging - Ovarian cyst and fibroid uterus: f/u as out pt # F/E/N - PO - Cont. to monitor - Liquid diet # DVT prophylaxis - Regular ambulation; scd # Disposition - Med/surg Martin Solitario MD Visit type - Emergency Visit Emergency Visit: No - New Patient This patient is new to me today: No - Critical Care Critical Care patient: No ATTENDING PHYSICIAN STATEMENT I saw and evaluated the patient. I reviewed the resident's note and discussed the case with the resident. I agree with the resident's findings and plan as documented. SUBJECTIVE: OBJECTIVE: ASSESSMENT AND PLAN:
[2019-10-31] MEDS ORDERED: ACETAMINOPHEN 1000 MG/100 ML VIAL (NON FORMULARY) IVPB PRN (20:59)
[2019-10-31] MEDS ORDERED: PATIENT'S OWN MEDICATION (NON-FORMULARY) (Dextroamphetamine/Amphetamine [Adderall 10 Mg Ta PO SCH (22:00)
[2019-11-01] MEDS: VANCOMYCIN 250 MG/5 ML ORAL SOLUTION PO SCH ×3 (05:13→18:00)
[2019-11-01 07:25] LABS: HEMATOCRIT 28.8 % (32.4-45.2); HEMOGLOBIN 9.9 GM/dL (10.7-15.3); MCH 31.7 pg (25.7-33.7); MCHC 34.5 g/dl (32.0-36.0); MEAN CELL VOLUME 91.9 fl (80-96); MEAN PLT VOLUME 7.9 fl (7.5-11.1); PLATELET COUNT 309 K/MM3 (134-434); RBC 3.14 M/mm3 (3.60-5.2); RDW 14.2 % (11.6-15.6); WHITE BLOOD COUNT 7.4 K/mm3 (4.0-10.0)
[2019-11-01 07:55] LABS: ALBUMIN 2.6 g/dl (3.4-5.0); BILIRUBIN,TOTAL 0.5 mg/dL (0.2-1); CALCIUM 7.8 mg/dL (8.5-10.1); CREATININE 0.6 mg/dL (0.55-1.3); TOT PROT 4.7 g/dl (6.4-8.2)
[2019-11-01 08:43] LABS: BLOOD UREA NITROGEN 2.6 mg/dL (7-18)
[2019-11-01] MEDS ORDERED: cefTRIAXone SODIUM 1 GM VIAL ONE (09:06)
[2019-11-01] MEDS ORDERED: DEXTROSE 5%-WATER - 50 ML IVPB ONE (09:07)
[2019-11-01] MEDS: CEFTRIAXONE 1 GM in DEXTROSE 5%-WATER - 50 ML IVPB SCH (10:20)
--- NOTE | 2019-11-01 12:09 | PN.GI ---
GI Progress Note Subjective: GI Note ( covering Dr. Gustafson): Very hungry. Has hunger pangs. No diarrhea since 1AM. No tenesmus or colicky pain. C diff toxin and enteric pathogen cultures are negative - Objective Vital Signs: Vital Signs Temperature 98.6 F 11/01/19 06:00 Pulse Rate 65 11/01/19 06:00 Respiratory Rate 20 11/01/19 06:00 Blood Pressure 106/57 L 11/01/19 06:00 O2 Sat by Pulse Oximetry (%) 98 10/31/19 21:00 Microbiology 10/30/19 14:00 Stool Clostridioides difficile Antigen - Final 10/30/19 14:00 Stool Clostridioides difficile Toxin Assay - Final 10/29/19 19:15 Stool Salmonella/Shigella Culture - Final 10/29/19 19:15 Stool Escherichia coli 0157 Culture - Final NO GROWTH OF SALMONELLA OR SHIGELLA SPECIES OBTAINED NO GROWTH OF CAMPYLOBACTER SPECIES OBTAINED NO GROWTH OF YERSINIA SPECIES OBTAINED NO GROWTH OF VIBRIO SPECIES OBTAINED NO GROWTH OF E COLI 0157 OBTAINED Laboratory Tests 10/29/19 10/29/19 11/01/19 09:30 09:30 06:37 WBC 15.0 H 7.4 Potassium C-Reactive Protein 2.6 H 11/01/19 06:37 WBC Potassium 4.0 C-Reactive Protein Constitutional: Calm ...Auscultate: Yes: Normoactive Bowel Sounds ...Palpate: Yes: Soft, Other (nontender) Labs: CBC, BMP 11/01/19 06:37 11/01/19 06:37 INR, PTT INR 1.11 (0.83-1.09) H 10/30/19 07:50 Assessment/Plan Impression: - Resolving apparently self limited infectious colitis Plan: -- Trial of lactose free solid diet Problem List - Problems (1) Diarrhea of infectious origin Code(s): A09 - INFECTIOUS GASTROENTERITIS AND COLITIS, UNSPECIFIED (2) Segmental colitis Code(s): K50.10 - CROHN'S DISEASE OF LARGE INTESTINE WITHOUT COMPLICATIONS
[2019-11-01] MEDS ORDERED: SODIUM CHLORIDE 1,000 ML IV SCH (12:27)
--- NOTE | 2019-11-01 16:49 | PN ---
Progress Note (short form) - Note Progress Note: Subjective: No fever or chills. No PATRICK . No abd pain. ate 2 trays of soft diet for lunch. No N/V. no diarrhea today. Objective: Vital Signs: Last Vital Signs Temp Pulse Resp BP Pulse Ox 98.7 F 64 20 106/64 98 11/01/19 14:00 11/01/19 14:00 11/01/19 14:00 11/01/19 14:00 11/01/19 09:00 Laboratory Results - last 24 hr 11/01/19 11/01/19 06:37 06:37 WBC 7.4 RBC 3.14 L Hgb 9.9 L Hct 28.8 L MCV 91.9 MCH 31.7 MCHC 34.5 RDW 14.2 Plt Count 309 MPV 7.9 Sodium 143 Potassium 4.0 Chloride 112 H Carbon Dioxide 27 Anion Gap 4 L BUN 2.6 L* Creatinine 0.6 Est GFR (CKD-EPI)AfAm 124.92 Est GFR (CKD-EPI)NonAf 107.78 Random Glucose 98 Calcium 7.8 L Total Bilirubin 0.5 AST 10 L ALT 12 L Alkaline Phosphatase 31 L Total Protein 4.7 L Albumin 2.6 L Physical Exam: NAD, awake, alert, cooperative. MMM. Cv: RRR. no MRG Lungs: CATB. Abd: soft, ND, NT, NL BS Ext: no edema or erythema ASSESSMENT AND PLAN: 49 y/o lady with h/o ADHD, and atrioventricular tachycardia s/p ablation, who presented with bloody diarrhea and abd pain. she was found to have segmental colitis 1- Transverse/descending/sigmoid colitis. likely infectious. Possible ischemic . - cont IV flagyl and Ceftriaxone - dc po vanco as c diff neg - cont soft diet - cont IVF for today , dc tomorrow - stool cx neg. - check echo 2- Hypokalemia: resolved, will monitor. 3- Acute blood loss anemia: stable hb. Bleeding has stopped 4- H/o ADHD . aderall from home 5- Fibroid uterus and Ovarian cyst on CT scan : she is aware 6- Long QTC: avoid any prolonging agents 7- DVT OX : scds start SQ heparin possible dc tomorrow Visit type - Emergency Visit Emergency Visit: Yes ED Registration Date: 10/29/19 Care time: The patient presented to the Emergency Department on the above date and was hospitalized for further evaluation of their emergent condition. - New Patient This patient is new to me today: No - Critical Care Critical Care patient: No
[2019-11-01] MEDS: PANTOPRAZOLE 40 MG TABLET PO SCH (21:14)
[2019-11-02] MEDS ORDERED: ACETAMINOPHEN 1000 MG/100 ML VIAL (NON FORMULARY) IVPB PRN (00:51)
[2019-11-02 07:53] LABS: BASO % 0.8 % (0-2.0); EOS % 4.6 % (0-4.5); HEMATOCRIT 32.7 % (32.4-45.2); HEMOGLOBIN 11.2 GM/dL (10.7-15.3); LYMPH % 34.6 % (8-40); MCH 30.8 pg (25.7-33.7); MCHC 34.1 g/dl (32.0-36.0); MEAN CELL VOLUME 90.4 fl (80-96); MEAN PLT VOLUME 7.8 fl (7.5-11.1); PLATELET COUNT 366 K/MM3 (134-434); RBC 3.62 M/mm3 (3.60-5.2); RDW 14.7 % (11.6-15.6); WHITE BLOOD COUNT 6.5 K/mm3 (4.0-10.0)
[2019-11-02 08:22] LABS: BLOOD UREA NITROGEN 9.1 mg/dL (7-18); CALCIUM 8.5 mg/dL (8.5-10.1); CREATININE 0.6 mg/dL (0.55-1.3)
[2019-11-02] MEDS ORDERED: PT OWN MED DRAWER 7, Y5N ONE ×3 (09:45→15:16)
[2019-11-02] MEDS: PANTOPRAZOLE 40 MG TABLET PO SCH (09:46)
[2019-11-02] MEDS ORDERED: LACTOBACILLUS ACIDOPHILUS 1 TABLET PO SCH (10:00)
--- NOTE | 2019-11-02 12:52 | PN ---
Teaching Attending Note Name of Resident: Martin Solitario ATTENDING PHYSICIAN STATEMENT I saw and evaluated the patient. I reviewed the resident's note and discussed the case with the resident. I agree with the resident's findings and plan as documented. SUBJECTIVE: No abd pain, diarrhea , fever or chills. tolerated soft diet and has been eating double portions and ordering form outside. OBJECTIVE: NAD, awake, alert, cooperative. MMM. Cv: RRR. no MRG Lungs: CATB. Abd: soft, ND, NT, NL BS Ext: no edema or erythema ASSESSMENT AND PLAN: 49 y/o lady with h/o ADHD, and atrioventricular tachycardia s/p ablation, who presented with bloody diarrhea and abd pain. she was found to have segmental colitis 1- Transverse/descending/sigmoid colitis. likely infectious. less likely ischemic . - will switch to po Abx - dc IVF - cont regular diet at home. - f/u with GI as out pt for possible repeat colo 2- Hypokalemia: resolved 3- Acute blood loss anemia: 4- H/o ADHD. cont adderall 5- Fibroid uterus and Ovarian cyst on CT scan : she is aware 6- Long QTC: avoid any prolonging agents. Dc home today
--- NOTE | 2019-11-02 13:00 | ECHO ---
Name: FELIBERTO KRISTI Exam:Adult Echocardiogram Study Date: 11/02/2019 12:11 PM Age: 49 yrs Reason For Study: Eval For Embolic Source Height: 62 in Weight: 110 lb BSA: 1.5 m2 MMode/2D Measurements & Calculations IVSd: 0.80 cm Ao root diam: 2.9 cm LVIDd: 4.5 cm LA dimension: 2.7 cm LVIDs: 2.9 cm ACS: 1.7 cm LVPWd: 0.71 cm EDV(Teich): 90.4 ml LVOT diam: 2.0 cm ESV(Teich): 32.7 ml TAPSE: 2.9 cm RV S Edward: 14.9 cm/sec Doppler Measurements & Calculations MV E max edward: 101.0 cm/sec Ao V2 max: 139.8 cm/sec MV A max edward: 61.1 cm/sec Ao max P.8 mmHg MV E/A: 1.7 Ao V2 mean: 96.5 cm/sec MV dec time: 0.23 sec Ao mean P.3 mmHg Ao V2 VTI: 27.9 cm SYLVAIN(I,D): 2.5 cm2 SYLVAIN(V,D): 2.6 cm2 LV V1 max P.5 mmHg SV(LVOT): 69.0 ml LV V1 mean P.6 mmHg LV V1 max: 116.9 cm/sec LV V1 mean: 72.1 cm/sec LV V1 VTI: 22.3 cm TR max edward: 196.4 cm/sec PA V2 max: 86.9 cm/sec TR max P.8 mmHg PA max P.0 mmHg PA acc time: 0.13 sec Med Peak E' Edward: 13.1 cm/sec PA pr(Accel): 18.8 mmHg Med E/e': 7.7 Lat Peak E' Edward: 13.9 cm/sec Lat E/e': 7.3 Pulm Sys Edward: 54.3 cm/sec Pulm Turner Edward: 52.9 cm/sec Pulm S/D: 1.0 Left Ventricle The left ventricular size, thickness and function are normal. Right Ventricle The right ventricle is grossly normal size. Atria Normal left and right atrial size and function. Mitral Valve The mitral valve is grossly normal. Tricuspid Valve The tricuspid valve is not well visualized, but is grossly normal. Aortic Valve The aortic valve is normal in structure and function. Pulmonic Valve The pulmonic valve is not well visualized. Great Vessels The aortic root is normal size. Pericardium/Pleura There is no pericardial effusion. Interpretation Summary Normal left ventricular size and function Normal right ventricle Upper normal left atrium Mild tricuspid regurgitation. ABBY\dsedab 11/02/2019 12:59 PM
[2019-11-02] MEDS ORDERED: metroNIDAZOLE 250 MG TABLET PO SCH (13:15)
[2019-11-02] MEDS ORDERED: CEFUROXIME AXETIL 500 MG TABLET PO SCH (13:15)
[2019-11-02] MEDS ORDERED: ACETAMINOPHEN 325 MG TABLET (FP) PO PRN (13:54)
--- NOTE | 2019-11-02 17:03 | DS ---
Physical Exam: SUBJECTIVE: Patient seen and examined at bedside. There were no acute events overnight. This AM she offers no new complaints. OBJECTIVE: Vital Signs Period Temp Pulse Resp BP Sys/Turner Pulse Ox Last 24 Hr 98.2 F-98.9 F 73-77 20-20 96-114/53-64 100 PHYSICAL EXAM GENERAL: AOx3, in no acute distress HEAD: NCAT EYES: MARY, EOMI, conjunctiva clear. ENT: Ears normal, nares patent, oropharynx clear without exudates. Dry mucous membranes. NECK: Normal range of motion, supple without lymphadenopathy, JVD, or masses. LUNGS: CTAB. No wheezes, and no crackles. No accessory muscle use. HEART: RRR s1 s2 ABDOMEN: Soft, BS present in all 4 quadrants, non-distended, no JVD, umbilical ornament. TYRONE from day 1: no gross hemorrhoids, adequate sphincter tone, no blood on glove MUSCULOSKELETAL: No bony deformities or tenderness. No CVA tenderness. UPPER EXTREMITIES: 2+ pulses, warm, well-perfused. No cyanosis. No clubbing. No peripheral edema. LOWER EXTREMITIES: 2+ pulses, warm, well-perfused. No calf tenderness. No peripheral edema. NEUROLOGICAL: No focal deficits. Cranial nerves II-XII intact. Normal speech. Gait not appreciated. PSYCHIATRIC: Cooperative. Good eye contact. Appropriate mood and affect. SKIN: Warm, dry, normal turgor, no rashes or lesions noted, normal capillary refill. LABS 11/02/19 11/02/19 07:05 07:05 WBC 6.5 RBC 3.62 Hgb 11.2 Hct 32.7 MCV 90.4 MCH 30.8 MCHC 34.1 RDW 14.7 Plt Count 366 MPV 7.8 Absolute Neuts (auto) 3.4 Neutrophils % 53.0 D Lymphocytes % 34.6 D Monocytes % 7.0 Eosinophils % 4.6 H D Basophils % 0.8 D Nucleated RBC % 0 Sodium 140 Potassium 4.0 Chloride 106 Carbon Dioxide 29 Anion Gap 5 L BUN 9.1 Creatinine 0.6 Est GFR (CKD-EPI)AfAm 124.92 Est GFR (CKD-EPI)NonAf 107.78 Random Glucose 98 Calcium 8.5 C-Reactive Protein 0.8 H HOSPITAL COURSE: Date of Admission:10/29/19 49 y/o female PMH ADHD c/o bloody diarrhea and admitted for care of colitis, likely infectious (less likely though possibly ischemic; active smoker). Flex sigmoidoscopy demonstrated transverse/descending/sigmoid colitis. Pseudomembranes seen on sigmoidoscopy but c diff/cultures neg. She was advised to follow lactose free diet. She has h/o Scarlet fever in youth; R BBB, L axis, and prolonged QTC: f/u with her card as out pt. During her stay she had incidental finding on imaging of ovarian cyst and fibroid uterus, which she will f/u as out pt. Date of Discharge: 11/02/19 Martin Solitario MD Minutes to complete discharge: 40 Discharge Summary Problems reviewed: Yes Reason For Visit: COLITIS Current Active Problems Long QT interval (Acute) ADHD (Chronic) Normocytic anemia (Chronic) Condition: Improved - Instructions Diet, Activity, Other Instructions: YOUR VISIT You came to the hospital because you were experiencing diarrhea, abdominal pain. You were admitted to the hospital for care of colitis. While here you were seen by gastroenterology and underwent a colonoscopy. You improved with fluids and antibiotics. You are now stable and may return home. MEDICATIONS Please continue to take your medications as prescribed. NEW MEDICATIONS - Cefdinir 300 mg by mouth every 12 hours for three days - Flagyl 500 mg by mouth every 8 hours for three days ADDITIONAL CARE Please make an appointment to see your primary care provider, Dr. Navarro, 1 week from today. Please make an appointment to see a artillery officer in 1 week. A referral has to Dr. Gustafson has been provided. You will follow up on the pathology results from your colonscopy. Please make an appointment to see your certified income tax preparer in 1 week to discuss fibroid uterus and ovarian cysts found on imaging. ADDITIONAL INFORMATION Please call 911 or come directly to the emergency department if you experience unusual headache, vision change, shortness of breath, chest pain, numbness, tingling, loss of alertness/awareness, loss of function, unusual bleeding or any alarming symptoms. The colon biopsy results will be discussed with you at the time of Dr. Gustafson' s visit . you already have a direct care counselor. please discuss with him the prolonged QTc interval in your EKG . also , the possible need fro a holter or event monitor for your heart Good luck Referrals: Kendall Navarro [Primary Care Provider] - 11/03/19 Lakhwinder Gustafson DO [Staff Physician] - 1 Week Disposition: HOME - Home Medications Comprehensive Discharge Medication List: Ambulatory Orders Lamotrigine [Lamictal] 200 mg PO DAILY 01/17/13 Dextroamphetamine/Amphetamine [Adderall 10 mg Tablet] 20 mg PO BID 10/29/19 Cefdinir 300 mg PO BID 3 Days #6 capsule 11/02/19 Metronidazole [Flagyl] 500 mg PO Q8H 3 Days #9 capsule 11/02/19 This patient is new to me today: No Emergency Visit: No Critical Care patient: No - Discharge Referral Referred to [facility] No ATTENDING PHYSICIAN STATEMENT I saw and evaluated the patient. I reviewed the resident's note and discussed the case with the resident. I agree with the resident's findings and plan as documented. SUBJECTIVE: OBJECTIVE: ASSESSMENT AND PLAN:
--- NOTE | 2019-11-02 17:18 | PATH ---
Surgical Pathology Report Patient Name: KRISTI DAO Med. Rec. #: [id number] /Age/Gender: 1970 (Age: 49) / F Account: [id number] Location: [facility]/SURG Taken: 10/30/2019 Received: 10/30/2019 Reported: 11/02/2019 Physicians: Dante Gustafson D.O. Specimen(s) Received LEFT COLON COLITIS Clinical History Rule out colitis Postoperative diagnosis: Colitis Final Diagnosis LEFT COLON COLITIS BIOPSY: FRAGMENTS OF COLONIC MUCOSA SHOWING SURFACE ULCERATION, GRANULATION TISSUE FORMATION, ACUTE INFLAMMATORY CELLS INFILTRATE INCLUDING SURFACE EXUDATE OF NEUTROPHILS. Comment: Findings are consistent with ischemic colitis. Suggest clinical correlation. Few isolated and small clusters of cells seen in the submucosa. Immunohistochemical stained slides demonstrate these cells to be negative for cytokeratin AE1/AE3, while positive for S-100 and synaptophysin, consistent with benign ganglion cells. Immunohistochemistry stains performed and interpreted at [facility]. Positive and negative controls (internal if applicable) show appropriate results. Electronically Signed Lupis Camargo M.D. Gross Description Received in formalin, labeled "biopsy left colon colitis" are 3 jean, irregular portions of soft tissue ranging from 0.2-0.3 cm. in greatest dimension. The specimens are submitted in toto in one cassette. 10/30/201910/30/2019
[2019-11-02 17:27] VITALS: BP 112/63; PULSE 84; TEMP 98.8
[2019-11-04 17:08] LABS: ATYPICAL pANCA <1:20 titer (Neg:<1:20); C-ANCA <1:20 titer (Neg:<1:20)
== END 2019-11-02 18:31 | disposition home or self-care (01) | DRG 249 ==
LOC: JER 00:17 → JERBED 07:15 → J8W 13:16
PROVIDERS: ADMIT Internal Medicine; ATTEND Internal Medicine
PROC: 0DBN8ZX Excision of Sigmoid Colon, Via Natural or Artificial Opening Endoscopic, Diagnostic (ICD-10-PCS; principal; 2019-10-30 11:00)
DX: A09 Infectious gastroenteritis and colitis, unspecified (principal); K63.5 Polyp of colon; F90.1 Attention-deficit hyperactivity disorder, predominantly hyperactive type; D64.9 Anemia, unspecified; N83.209 Unspecified ovarian cyst, unspecified side; D25.9 Leiomyoma of uterus, unspecified; K64.8 Other hemorrhoids; E87.6 Hypokalemia; D62 Acute posthemorrhagic anemia; I45.81 Long QT syndrome
CPT/HCPCS: 36415; 74177-TC; 76830-TC; 80048; 80053; 81003; 82272; 83520; 83690; 83735; 84100; 84436; 84443; 84481; 84703; 85025; 85027; 85610; 85651; 85730; 86140; 86256; 86671; 86850; 86900; 86901; 87040; 87045; 87046; 87086; 87324; 87449; 88305-TC; 88341-TC; 93005; 93010; 93306-TC; 99284-25; J0131; J7030

== ENCOUNTER 2021-03-08 20:23 | Emergency (ER) | payer OTHER ==
[2021-03-08 20:39] VITALS: BMI 20.1
[2021-03-08 22:11] LABS: BASO % 0.6 % (0-2.0); HEMATOCRIT 39.9 % (32.4-45.2); HEMOGLOBIN 13.8 GM/dL (10.7-15.3); LYMPH % 37.5 % (8-40); MCH 31.5 pg (25.7-33.7); MCHC 34.6 g/dl (32.0-36.0); MEAN CELL VOLUME 91.1 fl (80-96); MEAN PLT VOLUME 7.3 fl (7.5-11.1); MONO % 8.2 % (3.8-10.2); NEUT % 51.7 % (42.8-82.8); PLATELET COUNT 419 K/MM3 (134-434); RBC 4.38 M/mm3 (3.60-5.2); RDW 13.9 % (11.6-15.6); WHITE BLOOD COUNT 6.7 K/mm3 (4.0-10.0)
[2021-03-08 22:31] LABS: ALBUMIN 4.7 g/dl (3.4-5.0); BLOOD UREA NITROGEN 15.3 mg/dL (7-18)
[2021-03-08 22:36] LABS: BILIRUBIN,TOTAL 0.3 mg/dL (0.2-1); TOT PROT 7.9 g/dl (6.4-8.2)
[2021-03-08 23:03] LABS: PH,URINE 5.5 (5.0-8.0); URINE APPEARANCE CLEAR; URINE BILIRUBIN NEGATIVE (NEGATIVE); URINE COLOR YELLOW; URINE GLUCOSE (UA) NEGATIVE (NEGATIVE); URINE KETONE NEGATIVE (NEGATIVE); URINE LEUK ESTERASE NEGATIVE (NEGATIVE); URINE NITRITE NEGATIVE (NEGATIVE); URINE PROTEIN NEGATIVE (NEGATIVE); URINE UROBILINOGEN 0.2 mg/dL (0.2-1.0)
[2021-03-08 23:24] VITALS: BP 104/67; PULSE 92; TEMP 98
== END 2021-03-09 01:57 | disposition home or self-care (01) ==
LOC: JER 20:23
DX: R21 Rash and other nonspecific skin eruption (principal)
CPT/HCPCS: 36415; 70486-TC; 71045-TC-FY; 80053; 81003; 84703; 85025; 87040; 87086; 87177; 87209; 99285-25